=== PATIENT | female | born 1990 | race Caucasian/White ===

== ENCOUNTER 2020-02-02 11:26 | Observation (INO) | payer MEDICAID, SELFPAY ==
[2020-02-02] VITALS (8 sets, daily range): BP systolic 95–128; BP diastolic 50–87; PULSE 49–74; RESP 12–20; TEMP 36.6–36.9; O2SAT 99–100; BMI 38.2
--- NOTE | ~2020-02-02 | US_ITS ---
EXAMINATION: US right upper quadrant EXAM DATE: 02/02/2020 12:23 INDICATION: Cholelithiasis ruq pain, n/v. TECHNIQUE: Multiple grayscale and Doppler images of the abdomen right upper quadrant were obtained (b y a technologist who performed the scan) and subsequently reviewed. There is no prior study for michelle kidd. FINDINGS: The pancreatic head and body are normal in appearance. The pancreatic tail is not visualized. The l iver has normal echogenicity and contour. There are no focal liver lesions identified. There is no evidence of intrahepatic biliary duct dilation. Portal venous flow was seen in the hepatopedal, nor mal direction and has normal Doppler waveform. No right-sided hydronephrosis. Common bile duct measures 6 mm, which is normal. 3 sizable gallstones identified. The gallbladder is moderately distended. Gallbladder wall measuring 4 mm, mildly thickened. No pericholecystic fluid. T echnologist reports sonographic Elizabeth's sign was demonstrated. IMPRESSION: Cholelithiasis, mild gallbladder wall thickening and sonographic Elizabeth's sign demonstrat ed, findings suspicious for acute cholecystitis. Reviewed, dictated and finalized at location B. NTOLOGY AIDE IMPRESSION: Cholelithiasis, mild gallbladder wall thickening and sonographic Mu rphy's sign demonstrated, findings suspicious for acute cholecystitis.
--- NOTE | ~2020-02-02 | MR_ITS ---
EXAMINATION: MR MRCP wo/w con/w 3D wo ind DATE: 02/02/2020 17:32 INDICATION: Right upper quadrant abdominal pain. Cholelithiasis. TECHNIQUE: Magnetic resonance imaging (MRI) of the abdomen was performed without and with 20 mL Multi Evens intravenous contrast. Sequences included coronal T2-weighted FS FSE, coronal T2-weighted FSE, a xial T1-weighted LAVA, coronal FS FIESTA, axial dual-echo T1-weighted SPGR, coronal lava-FLEX, sagitt al T2-weighted FSE, axial T2-weighted FSE, and axial DWI. Thick-slab T2-weighted FSE images were obta ined for magnetic resonance cholangiopancreatography (MRCP). Maximum intensity projection 3-D reconst ructions of the volumetric data were created by the technologist. Postcontrast sequences included cor onal LAVA-flex and time course of axial T1-weighted LAVA. COMPARISON: Ultrasound 02/02/2020 FINDINGS: ABDOMEN MRI: There is a 4 mm cyst in the liver. The spleen, pancreas, adrenal glands, and kidneys are normal. The gallbladder is normal in size and contains gallstones. Gallbladder wall thickening is no fermin. There are no dilated loops of bowel. There are no pathologically enlarged lymph nodes. There is no free intraperitoneal fluid. ABDOMEN MRCP: The common duct is normal in size and measures 6 mm. No choledocholithiasis. IMPRESSION: 1. Cholelithiasis. Gallbladder wall thickening may be secondary to acute or chronic cholecystitis. Co nsider hepatobiliary scintigraphy. Reviewed, dictated and finalized at location A. URIC ACID PLANT OPERATOR IMPRESSION: 1. Cholelithiasis. Gallbladder wall thickening may be secondary to acute or chr onic cholecystitis. Consider hepatobiliary scintigraphy.
--- NOTE | 2020-02-02 11:38 | ED.ABDPAIN ---
HPI - Abdominal Pain General Chief Complaint: Abdominal Pain <DELL Garibay Last Filed: 02/02/20 14:44> Stated Complaint: RUQ pain <DELL Garibay Last Filed: 02/02/20 14:44> Time Seen by Provider: 02/02/20 11:34 <DELL Garibay Last Filed: 02/02/20 14:44> Source: patient <DELL Garibay Last Filed: 02/02/20 14:44> Mode of arrival: EMS <DELL Garibay Last Filed: 02/02/20 14:44> Limitations: no limitations <DELL Garibay Last Filed: 02/02/20 14:44> History of Present Illness HPI narrative: Patient presents to the [place] emergency department after leaving [facility], stepping outside and calling EMS to bring her to this facility. Patient was admitted for cholelithiasis and was scheduled to have surgery performed tomorrow to remove her gallbladder. Patient states that she did not like the wait times at [facility], treatment, or the surgeon so she left. She states that she wanted to have her gallbladder removed and we discharged the same day and they do not explain to her why that cannot be accomplished. Patient states that her symptoms began last night at approximately 11 PM and presented with pain to the right upper quadrant and nausea and vomiting. Patient states that she presented to [facility] emergency department where she was admitted and told her that he was having asthma gallbladder removed. Patient states she has not had anything to eat since that time. Patient reports that she attempted to swallow except water this morning but vomited it back up. Patient states that she received pain medication via EMS so at this time afterwards she is tender to the right upper quadrant but is not experiencing pain or nausea or vomiting.Patient states that she had an additional flare of the gallbladder in June and was discharged home without need for admission. Patient states that she smokes, drinks alcohol occasionally uses marijuana. Will hospitalize patient denies fever, urinary or bowel issues. She reports her only other surgery was ankle surgery. She reports that she is having an Implanon. <DELL Garibay Last Filed: 02/02/20 14:44> Related Data Home Medications: Home Medications Medication Instructions Recorded Confirmed No Home Medications 02/02/20 02/02/20 <Ayana Gonzales PA-C - Last Filed: 02/02/20 14:44> Allergies/Adverse Reactions: Allergies Allergy/AdvReac Type Severity Reaction Status Date / Time amoxicillin Allergy Unknown Verified 02/02/20 15:34 nickel Allergy Rash Verified 02/02/20 15:34 Penicillins Allergy Unknown Verified 02/02/20 15:34 <Ayana Gonzales PA-C - Last Filed: 02/02/20 14:44> Review of Systems Review of Systems: Narrative: CONSTITUTIONAL: Denies fever, chills, or sweats. EYES: Denies visual changes, redness, or discharge. ENT: Denies rhinorrhea, congestion, sore throat, or otalgia. CARDIOVASCULAR: Denies chest pain, palpitations, or edema. RESPIRATORY: Denies cough or dyspnea. GASTROINTESTINAL: Reports right upper quadrant abdominal pain, resolved- nausea and vomiting, denies diarrhea. GENITOURINARY: Denies dysuria or hematuria. SKIN: Denies rash or itching. MUSCULOSKELETAL: Denies back pain, joint pain, or myalgia. NEUROLOGIC: Denies headache, numbness, dizziness, or weakness. PSYCHIATRIC: Denies anxiety or depression. <Ayana Gonzales PA-C - Last Filed: 02/02/20 14:44> [facility] Past Medical History Medical History: Medical History (Updated 02/02/20 @ 17:58 by Aj Reyes MD) Anxiety Elevated liver enzymes Leukocytosis Nausea & vomiting RUQ pain <Ayana Gonzales PA-C - Last Filed: 02/02/20 14:44> Social History Social History: Social History Smoking packs per day: 1 Smoking cigarettes per day: 20.0 Smoking status: Current every day smoker Tobacco type: cigarettes Alcohol intake: current Drinks per week: 1 Sub
--- NOTE | 2020-02-02 11:58 | PC.NURSE ---
Pt. to ultrasound
[2020-02-02 12:11] LABS: Add Urine Microscopic? YES; Appearance Urine Cloudy (Clear); Bacteria Urine Trace /hpf; Bilirubin Urine Negative (Negative); Blood Urine Negative (Negative); Color Urine Amber (Yellow); Glucose Urine UA Negative (Negative); Ketones Urine Trace mg/dL (Negative); Leukocyte Esterase Ur 2+ LEU/UL (Negative); Mucus Urine Rare /lpf; Nitrate Urine Negative (Negative); Protein Urine 1+ mg/dL (Negative); Specific Grav Ur 1.025 (1.001-1.035); Squamous Epithelial Cell Urine Many /hpf (Few)
[2020-02-02 12:26] LABS: Amphetamine Screen Urine Negative (Negative); Barbiturate Screen Urine Negative (Negative); Benzodiazepines Screen Urine Negative (Negative); Cannabinoid Screen Urine Positive (Negative); Cocaine Screen Urine Negative (Negative); Methadone Screen Urine Negative (Negative); Opiate Screen Urine Positive (Negative); Phencyclidine Screen Urine Negative (Negative)
[2020-02-02 12:50] LABS: Basophils Percent Auto 0.3 % (0.2-1.2); Eosinophils Absolute Auto 0.2 K/mm3 (0-0.3); Eosinophils Percent Auto 1.2 % (0-4.4); Hematocrit 44.4 % (37.0-47.0); Hemoglobin 14.8 g/dL (12.0-15.0); Immature Granulocyte Absolute 0.04 K/mm3 (0.00-0.031); Immature Granulocyte Percent A 0.3 % (0-0.5); Lymphocytes Absolute Auto 1.19 K/mm3 (0.9-3.2); Lymphocytes Percent Auto 8.8 % (18.3-44.2); Mean Corpuscular HGB Conc 33.3 g/dl (32-36); Mean Corpuscular Hemoglobin 30.9 pg (26-34); Mean Corpuscular Volume 92.7 fl (80-100); Monocytes Absolute Auto 0.9 K/mm3 (0.1-0.6); Monocytes Percent Auto 6.4 % (2.6-8.5); Neutrophils Absolute Auto 11.2 K/mm3 (1.3-6.7); Platelet Count Result 277 k/mm3 (150-375); Red Blood Count 4.79 M/mm3 (4.2-5.4); Red Cell Distribution Width 13.3 % (11.5-14.5); White Blood Count 13.5 K/mm3 (4.5-10.0)
[2020-02-02 13:02] LABS: Lactic Acid Reflex 0.9 mmol/L (0.7-2.1)
[2020-02-02 13:03] LABS: Alanine Aminotransferase 460 U/L (4-35); Alkaline Phosphatase 103 U/L (38-126); Anion Gap 7 mmol/L (8-16); Aspartate Amino Transferase 536 U/L (14-36); Blood Urea Nitrogen 8 mg/dL (7-17); Calcium 8.6 mg/dL (8.4-10.2); Carbon Dioxide 26 mmol/L (22-30); Chloride 106 mmol/L (98-107); Estimated CRCL calculation 138 ml/min; Estimated Glomerular Filt Rate > 60; Glucose 90 mg/dL (65-105); Lipase 69 U/L (23-300); Potassium 3.6 mmol/L (3.4-5.0); Sodium 139 mmol/L (137-145)
--- NOTE | 2020-02-02 14:05 | PC.NURSE ---
Manual BP obtained. Pt. BP 95/50. EDP aware, EDP ordered 1L fluid bolus via verbal order readback
[2020-02-02] MEDS: SODIUM CHLORIDE 0.9% IV 1,000 ML 999 ML IV CONT (14:10)
--- NOTE | 2020-02-02 15:00 | PM.IMHP ---
H&P: HPI History of Present Illness Date/Time: 02/02/20 15:00 Chief Complaint: acute cholecystitis Narrative: Berna Renner is a 29 year old female presenting to ED from OSH c/o severe RUQ abd pain assoc c bloating, N/V. Pt reports mild sx in past but this particular episode has been going on for last few days constantly. Pt was admitted to OSH c acute cholecystitis but left AMA after some communication issues. Pt reports pain is somewhat improved but still c nausea, bloating. Review of Systems Constitutional: Constitutional: Reports anorexia, Denies chills, Reports fatigue, Denies fever(s), Denies headache(s), Denies increased appetite, Reports lethargy, Reports malaise, Reports poor appetite, Reports weakness, Denies weight gain and Denies weight loss Eyes: Eyes: Reports no additional eye complaints ENT: Reports system reviewed and no additional complaints, except as documented Cardiovascular: Cardiovascular: Reports no additional cardiovascular complaints Respiratory: Respiratory: Reports no additional respiratory complaints Gastrointestinal: Gastrointestinal: Reports abdominal pain, Reports belching, Reports bloating, Reports early satiety, Reports dyspepsia, Reports heartburn, Denies diarrhea, Denies loose stools and Reports nausea Genitourinary: Genitourinary: Reports no additional female genitourinary complaints Musculoskeletal: Musculoskeletal: Reports no additional musculoskeletal complaints Integumentary/Breasts: Skin/Breast: Reports system reviewed and no additional complaints, except as docu Neurologic: Reports system reviewed and no additional complaints, except as documented Psychiatric: Psychiatric: Reports no additional psychiatric complaints Endocrine: Endocrine: Reports no additional endocrine complaints Hematologic/Lymphatic: Hematologic/Lymphatic: Reports no additional hematologic/lymphatic complaints Allergic/Immunologic: Allergic/Immunologic: Reports no additional allergic/immunologic complaints [facility] Social History Social History Gender identity (if verbalized by the patient): Female Comments pt denies past med history, denies any FH of biliary dz, reports social marijuana use Meds Home Medications and Allergies Allergies Allergy/AdvReac Type Severity Reaction Status Date / Time amoxicillin Allergy Unknown Verified 02/02/20 11:33 Penicillins Allergy Unknown Verified 02/02/20 11:33 Vital Signs Vital Signs - 24 hr 02/02/20 11:28 02/02/20 13:05 02/02/20 14:04 Temperature 36.6 C Pulse Rate 55 L 60 49 L Respiratory Rate 17 12 12 Blood Pressure 124/77 128/78 95/50 L Pulse Oximetry 99 99 99 02/02/20 14:22 02/02/20 14:49 Temperature Pulse Rate 58 L 58 L Respiratory Rate 12 12 Blood Pressure 112/62 116/66 Pulse Oximetry 99 99 Exam Const: General: cooperative, alert, awake, Physically active and acute distress mild Nutritional Appearance: overweight Orientation/consciousness: patient oriented x3 Limitations: no limitations HENMT: Head: normal to inspection, normocephalic and atraumatic Ears: hearing grossly normal bilaterally General nose exam: Normal external nose present Mouth: Yes moist mucous membranes Eyes: General: appearance normal, both eyes and all related structures Pupils: Equal, round and reactive pupils present EOM: EOMs intact bilaterally Neck: Neck: normal visual inspection, full ROM and no lymphadenopathy Resp: Effort & Inspection: normal respiratory effort Auscultation: clear to auscultation bilaterally Cardio: Jugular venous distension: no JVD Rate: regular rate Rhythm: regular rhythm GI: Inspection: normal to inspection and non-distended GI Palp: Yes abdominal tenderness, Yes Soft to palpation and Yes Tenderness to palpation present (GI) Skin: General skin exam: normal color and no rashes or lesions noted Neuro: General: patient oriented x3 and CN's II-XI intact bilaterally Extrem: General: normal to inspection and full ROM
--- NOTE | 2020-02-02 15:18 | ADMGEN ---
This patient, Berna Renner, was admitted to 2 Medical Room 261-01. Patient/family oriented to hospital policies and general routines including ID bracelet, bed and alarms, visiting hours, pain management, procedures, bathroom and other care routines, personal items, smoking policy, room service/diet, and visiting hours. Information on how to activate the Rapid Response Team has been discussed. Patient/Family are encouraged to report perceived risks to care and to ask questions if they do not understand what they are told or what they should do.
[2020-02-02] MEDS: SODIUM CHLORIDE 0.9% IV 1,000 ML 125 ML IV CONT (16:22)
[2020-02-02] MEDS: LORazepam INJ (*CRX) 2 MG/ML VIAL 1 MG IV PUSH (16:23)
--- NOTE | 2020-02-02 17:53 | WPDGICN ---
Assessment and Plan Assessment and plan (1) Acute calculous cholecystitis: Code(s): K80.00 - Calculus of gallbladder with acute cholecystitis without obstruction Status: Acute Assessment and Plan: admitted to floor, on iv antibiotics and surgery on board- eventually will need cholecystectomy but will get MRCP to assess if biliary abnormalities (stones, sludge, strictures, etc) npo for now (2) Cholelithiasis: Qualifiers: Biliary obstruction: without biliary obstruction Cholecystitis acuity: acute Cholecystitis presence: with cholecystitis Cholelithiasis location: gallbladder Qualified Code(s): K80.00 - Calculus of gallbladder with acute cholecystitis without obstruction Code(s): K80.20 - Calculus of gallbladder without cholecystitis without obstruction Status: Acute (3) Elevated liver enzymes: Code(s): R74.8 - Abnormal levels of other serum enzymes Status: Acute Assessment and Plan: probably related to cholecystitis pending mrcp will get hepatitis panel, denies etoh abuse trend liver enzymes (4) Nausea & vomiting: Code(s): R11.2 - Nausea with vomiting, unspecified Status: Acute Assessment and Plan: improved, medical treatment (5) RUQ pain: Code(s): R10.11 - Right upper quadrant pain Status: Acute (6) Leukocytosis: Code(s): D72.829 - Elevated white blood cell count, unspecified Status: Acute Assessment and Plan: on antibiotics now (7) Anxiety: Code(s): F41.9 - Anxiety disorder, unspecified Status: Acute GI Consult Note Consult date/time: 02/02/20 17:53 Reason for consult: cholecystitis, elevated liver enzymes HPI: Berna Renner is a 29 year old female with history of depression, PTSD and anxiety who has been dealing with intermittent RUQ pain after eating. Recently she was in another hospital with severe pain RUQ abd with bloating, N/V but left AMA. She is here with similar symptoms and admitted to surgical service. ultrasound showed cholelithiasis, mild gallbladder wall thickening and sonographic Elizabeth's sign demonstrated, findings suspicious for acute cholecystitis. Also wbc 13, bili 2, transaminases 400-500. MRCP is pending. Never had egd, denies etoh abuse or liver problem. Review of Systems Constitutional: Constitutional: Denies chills Eyes: Eyes: Reports no additional eye complaints ENT: Reports system reviewed and no additional complaints, except as documented Cardiovascular: Cardiovascular: Denies chest pain Respiratory: Respiratory: Denies cough Gastrointestinal: Gastrointestinal: Reports abdominal pain and Reports nausea Genitourinary: Genitourinary: Denies urinary urgency Musculoskeletal: Musculoskeletal: Denies neck pain Integumentary/Breasts: Skin/Breast: Denies dry skin Neurologic: Denies headache(s) Psychiatric: Psychiatric: Reports anxiety [facility] Past Medical History Medical History (Updated 02/02/20 @ 17:58 by Aj Reyes MD) Anxiety Elevated liver enzymes Leukocytosis Nausea & vomiting RUQ pain Social History Social History Smoking packs per day: 1 Smoking cigarettes per day: 20.0 Smoking status: Current every day smoker Tobacco type: cigarettes Alcohol intake: current Drinks per week: 1 Substance use: former Substance use type: marijuana and methamphetamine Last use: 02/01/2020 marijuana; April 2019 Gender identity (if verbalized by the patient): Female Spiritual care concerns: No Meds Home Medications and Allergies Home Medications Medication Instructions Recorded Confirmed Type No Home Medications 02/02/20 02/02/20 History Allergies Allergy/AdvReac Type Severity Reaction Status Date / Time amoxicillin Allergy Unknown Verified 02/02/20 15:34 nickel Allergy Rash Verified 02/02/20 15:34 Penicillins Allergy Unknown Verified 02/02/20 15:34 Vital Signs Vital Signs - 24 hr
[2020-02-02] MEDS: metroNIDAZOLE 500 MG/ISO 100ML 500 MG/100 ML BAG 100 MG IVPB (18:36)
[2020-02-03] VITALS (15 sets, daily range): BP systolic 101–142; BP diastolic 51–87; PULSE 51–124; RESP 13–31; TEMP 36.1–36.9; O2SAT 95–100
[2020-02-03] MEDS: metroNIDAZOLE 500 MG/ISO 100ML 500 MG/100 ML BAG 100 MG IVPB ×2 (00:39→06:04)
[2020-02-03] MEDS: SODIUM CHLORIDE 0.9% IV 1,000 ML 125 ML IV CONT (04:02)
[2020-02-03] MEDS: HYDROmorphone HCL INJ (*CRX) 1 MG/ML SYR IV PUSH ×4 (04:14→12:48)
[2020-02-03 06:17] LABS: Hematocrit 40.8 % (37.0-47.0); Hemoglobin 13.8 g/dL (12.0-15.0); Mean Corpuscular HGB Conc 33.8 g/dl (32-36); Mean Corpuscular Hemoglobin 31.4 pg (26-34); Mean Corpuscular Volume 92.9 fl (80-100); Platelet Count Result 254 k/mm3 (150-375); Red Blood Count 4.39 M/mm3 (4.2-5.4); Red Cell Distribution Width 13.2 % (11.5-14.5); White Blood Count 8.6 K/mm3 (4.5-10.0)
[2020-02-03 06:31] LABS: Alanine Aminotransferase 388 U/L (4-35); Albumin Level 3.4 g/dL (3.5-5.1); Alkaline Phosphatase 107 U/L (38-126); Anion Gap 5 mmol/L (8-16); Aspartate Amino Transferase 227 U/L (14-36); Bilirubin,Total 2.7 mg/dL (0.2-1.3); Blood Urea Nitrogen 5 mg/dL (7-17); Calcium 8.2 mg/dL (8.4-10.2); Carbon Dioxide 24 mmol/L (22-30); Chloride 107 mmol/L (98-107); Estimated CRCL calculation 120 ml/min; Estimated Glomerular Filt Rate > 60; Glucose 83 mg/dL (65-105); Potassium 3.8 mmol/L (3.4-5.0); Sodium 136 mmol/L (137-145)
[2020-02-03 07:06] LABS: Hepatitis B Surface Antigen Negative (Negative)
[2020-02-03 07:12] LABS: HAV RESULT Negative (Negative); Hepatitis B Core IgM Result Negative (Negative)
--- NOTE | 2020-02-03 07:15 | PC.NURSE ---
Patient to OR.
[2020-02-03 07:23] LABS: Hepatitis C Virus Antibody Negative (Negative)
--- NOTE | 2020-02-03 07:34 | WPDANESEPPF ---
Anes - Initial Pre Proc Eval Procedure: Operation Date: 02/03/20 08:30 Proposed Procedures p Laparoscopic Cholecystectomy - Renita Peoples MD Date/Time: 02/03/20 07:34 Surgeon: Renita Peoples MD Pre Op Diagnosis: CHOLELITHIASIS ITH CHOLECYSTITIS Patient Data Age: 29 Gender: F Height: 1.63 m Weight: 101 kg Last Vital Signs Temp 36.1 C L 02/03/20 05:05 Pulse 51 L 02/03/20 05:05 Resp 18 02/03/20 05:05 BP 101/51 L 02/03/20 05:05 Pulse Ox 96 02/03/20 05:05 Allergies Allergy/AdvReac Type Severity Reaction Status Date / Time amoxicillin Allergy Severe Anaphylactic Verified 02/03/20 07:31 Shock Penicillins Allergy Severe Anaphylactic Verified 02/03/20 07:31 Shock nickel Allergy Mild Rash Verified 02/03/20 07:31 Home Medications Medication Instructions Recorded Confirmed Type No Home Medications 02/02/20 02/02/20 History Laboratory Tests 02/02/20 02/02/20 02/02/20 11:53 11:54 12:32 WBC 13.5 K/mm3 H K/mm3 (4.5-10.0) RBC 4.79 M/mm3 M/mm3 (4.2-5.4) Hgb 14.8 g/dL g/dL (12.0-15.0) Hct 44.4 % % (37.0-47.0) MCV 92.7 fl fl (80-100) MCH 30.9 pg pg (26-34) MCHC 33.3 g/dl g/dl (32-36) RDW 13.3 % % (11.5-14.5) Plt Count 277 k/mm3 k/mm3 (150-375) MPV 10.0 fl fl (7.4-10.4) Immature Gran % (Auto) 0.3 % % (0-0.5) Neut % (Auto) 83.0 % H % (45.5-73.1) Lymph % (Auto) 8.8 % L % (18.3-44.2) Mclean % (Auto) 6.4 % % (2.6-8.5) Eos % (Auto) 1.2 % % (0-4.4) Baso % (Auto) 0.3 % % (0.2-1.2) Lymph # (Auto) 1.19 K/mm3 K/mm3 (0.9-3.2) Mclean # (Auto) 0.9 K/mm3 H K/mm3 (0.1-0.6) Eos # (Auto) 0.2 K/mm3 K/mm3 (0-0.3) Baso # (Auto) 0.0 K/mm3 K/mm3 (0.0-0.1) Abs Immat Gran (auto) 0.04 K/mm3 H K/mm3 (0.00-0.031) Absolute Neuts (auto) 11.2 K/mm3 H K/mm3 (1.3-6.7) Absolute Nucleated RBC 0.0 K/mm3 K/mm3 (0.0-0.012) Nucleated RBC % 0.0 % % (0.0-0.2) Sodium Potassium Chloride Carbon Dioxide Anion Gap BUN Creatinine Estim Creat Clear Calc Estimated GFR Glucose Lactic Acid Calcium Total Bilirubin AST ALT Alkaline Phosphatase Total Protein Albumin Lipase Urine Color Wendy (Yellow) Urine Appearance Cloudy H (Clear) Urine pH 7.0 (5.0-9.0) Ur Specific [place] 1.025 (1.001-1.035) Urine Protein 1+ mg/dL H mg/dL (Negative) Urine Glucose (UA) Negative mg/dL mg/dL (Negative) Urine Ketones Trace mg/dL mg/dL (Negative) Ur Blood (Man) Negative (Negative) Urine Nitrate Negative (Negative) Urine Bilirubin Negative (Negative) Urine Urobilinogen 4.0 mg/dL H mg/dL (<2.0) Leukocyte Esterase Rfl 2+ CARRI/UL H CARRI/UL (Negative) Urine RBC 3-5 /hpf H /hpf (0-2) Urine WBC 4-6 /hpf H /hpf Ur Squamous Epith Cells Many /hpf H /hpf (Few) Urine Bacteria Trace /hpf /hpf Urine Mucus Rare /lpf /lpf Urine Opiates Screen Positive A (Negative) Urine Methadone Screen Negative (Negative) Ur Barbiturates Screen Negative (Negative) Ur Phencyclidine Scrn Negative (Negative) Ur Amphetamine Screen Negative (Negative) U Benzodiazepines Scrn Negative (Negative) Urine Cocaine Screen Negative (Negative) U Cannabinoids Screen Positive A (Negative) Hepatitis A IgM Ab Hep Bs Antigen Hep B Core IgM Ab Hepatitis
[2020-02-03] MEDS: LACTATED RINGERS 1,000 ML 30 ML IV CONT ×2 (07:40→09:42)
[2020-02-03] MEDS: FAMOTIDINE 20 MG/2 ML VIAL IV PUSH (07:51)
[2020-02-03] MEDS: SCOPOLAMINE 1.5 MG PATCH TRANSDERM (07:51)
--- NOTE | 2020-02-03 08:17 | WPDHPUPDATE1 ---
History and Physical Update Update Date/Time: 02/03/20 08:17 History and Physical has been reviewed, including an updated exam of the patient. There are NO changes in the patient's condition. Risks, benefits, and alternatives have been discussed and questions answered. Patient agrees to proceed with procedure.
[2020-02-03] MEDS: BUPIVACAINE/EPINEPHRINE 0.25% 10 ML VIAL 30 ML INFILTRATE (08:52)
[2020-02-03] MEDS: KETAMINE HCL (*CRX) 500 MG/10 ML VIAL 50 MG IV PUSH (09:40)
[2020-02-03] MEDS: fentaNYL CITRATE INJ (*CRX) 100 MCG/2 ML VIAL 25 MCG IV PUSH ×8 (10:00→10:50)
[2020-02-03] MEDS: MIDAZOLAM HCL (*CRX) 2 MG/2 ML VIAL IV PUSH (10:23)
--- NOTE | 2020-02-03 10:23 | SUR.PHASEI ---
RASHI SHANKAR GAVE 50 KETAMINE AT 0940, I CHARTED. KEITH CARTER GAVE ORDER FOR 1 MG DILAUDID AT 1005, I GAVE. DR GAGNON GAVE ORDER FOR 2 VERSED AT 1015, I GAVE.
--- NOTE | 2020-02-03 10:42 | PM.PROC ---
Procedure Note - Detailed Date of procedure: 02/03/20 Pre-op diagnosis: CHOLELITHIASIS ITH CHOLECYSTITIS acute cholecystitis, cholelithiasis Post-op diagnosis: same Procedure performed: laparoscopic cholecystectomy Description of procedure: The patient was taken to the operating room placed in the supine position. After adequate induction of general anesthesia, the patient was prepped and draped in normal sterile fashion. A time-out was then performed to verify the patient's identity as well as the procedure being performed. I then made a 5 mm incision in the infraumbilical region. Through this, a Veress needle was placed into the peritoneal cavity and CO2 gas was then insufflated. After adequate pneumoperitoneum was achieved, the Veress needle was removed and a 5 mm trocar was placed through this incision. I then placed the laparoscope through this trocar site and under direct visualization placed a further 12 mm subxiphoid port as well as 2 additional 5 mm ports in the right upper abdomen. The gallbladder was then identified and was noted to be inflamed. I was able to place a grasper at the dome of the gallbladder and this was retracted anterior and cephalad up over the liver. A 2nd retractor was then placed at the infundibulum and retracted laterally, this allowed visualization of the triangle of Calot. I then was able to visualize the cystic duct in its entirety from its proximal insertion into the gallbladder, to its distal junction with the common hepatic/common bile duct junction. At this point, I carefully skeletonized the proximal cystic duct with the [place] dissector. I then clipped and transected the proximal cystic duct. Next I visualized the cystic artery. Again the artery was skeletonized, clipped, and transected. I then used the Bovie cautery to take down the peritoneal attachments of the gallbladder off the liver bed. Once the gallbladder specimen was completely detached, an endo-pouch was placed through the 12 mm port site. I then placed the gallbladder specimen into the Endo pouch and removed the endo-pouch from the 12 mm port site. The specimen will now be sent to pathology for further review. I then copiously irrigated the right upper quadrant. Hemostasis was noted in the liver bed, the clips were noted to be in good position on both the cystic duct stump and the cystic artery stump. No other pathology was noted in the right upper quadrant. I then moved the laparoscope to the subxiphoid port. No iatrogenic injury or other pathology was noted in the lower abdomen. At this point, the abdomen was desufflated and all ports removed. The fascia of the 12 mm subxiphoid port was closed with a 0 Vicryl figure of 8 suture. All port sites were then closed with 4.O Monocryl subcuticular sutures. Dermabond was placed on each incision. The patient tolerated the procedure well, was extubated in the operating room postoperative and will be transferred to the recovery room in stable condition. Implants: none Anesthesia: GETA Surgeon: Renita Peoples MD Estimated blood loss (mL): 5 Drains: No Packing: No Pathology: yes Complications: No immediate complications Condition: stable Disposition: PACU Findings: acute cholecystitis, cholelithiasis
--- NOTE | 2020-02-03 11:11 | PC.NURSE ---
Patient returned from OR.
[2020-02-03] MEDS: NICOTINE (*PBKC) 21 MG PATCH 1 PATCH TRANSDERM (11:14)
--- NOTE | 2020-02-03 12:30 | PC.NURSE ---
Patient received from OR thrashing around in the bed, hysterically crying and unable to be consoled. Patient stating she was having RUQ sharp pains. Educated patient in regards to gas pains following surgery, the need for ambulation, etc. Patient at that time was not receptive to the information and continued to thrash around in the bed. IV Ofirmev was administered. At this time, patient still unable to be consoled, stating the pain is 10/10 epigastric region. Called and spoke to Ananya Darby. Received orders from her that I was able to administer patients dilaudid. Ananya aware of medications patient received in PACU including Fentanyl, Versed, Ketamine, and Dilaudid.
[2020-02-03] MEDS: HYDROcodone/acetaminophen (*CRX) 5-325 MG TABLET 1 TAB PO (15:19)
--- NOTE | 2020-02-03 16:07 | WPDGIPROGNO ---
Progress Note: A&P Assessment and Plan (1) RUQ pain: Code(s): R10.11 - Right upper quadrant pain Status: Acute (2) Acute calculous cholecystitis: Code(s): K80.00 - Calculus of gallbladder with acute cholecystitis without obstruction Status: Acute Assessment and Plan: lap kim today and recovering no need of ercp (3) Leukocytosis: Code(s): D72.829 - Elevated white blood cell count, unspecified Status: Acute Assessment and Plan: resolved, on antibiotics Subjective Date/time seen: 02/03/20 16:07 Interval history: MRCP no choledocholithiasis and today underwent lap kim, recovering from surgery. Review of Systems Review of Systems: All systems reviewed & are unremarkable except as noted in HPI and below Exam Const: General: comfortable and no acute distress HENMT: General nose exam: Normal nares present Eyes: General: appearance normal, both eyes and all related structures Neck: Neck: no JVD Resp: Auscultation: clear to auscultation bilaterally Cardio: Rate: regular rate Rhythm: regular rhythm GI: GI Palp: Yes Soft to palpation and Yes Tenderness to palpation present (GI) (minimally tender from recent lap kim, no rebound) Auscultation: normal bowel sounds Skin: General skin exam: normal color Neuro: General: gait normal Speech: normal speech Extrem: General: normal to inspection Psych: Mental Status: mental status grossly normal Objective Data Vital Signs Vital Signs: Vital Signs - 24 hr 02/02/20 22:00 02/03/20 04:13 02/03/20 05:05 Temperature 98.1 F 97 F L Pulse Rate 74 51 L Respiratory Rate 20 18 Blood Pressure 125/52 L 110/80 101/51 L Pulse Oximetry 99 96 02/03/20 07:34 02/03/20 09:33 02/03/20 09:45 Temperature 97.5 F L 97.3 F L Pulse Rate 124 H 63 65 Respiratory Rate 18 18 31 H Blood Pressure 122/73 106/87 111/82 Pulse Oximetry 97 100 100 02/03/20 10:00 02/03/20 10:15 02/03/20 10:30 Temperature Pulse Rate 66 57 L 60 Respiratory Rate 14 20 13 Blood Pressure 122/86 122/86 134/79 Pulse Oximetry 100 100 97 02/03/20 10:45 02/03/20 11:00 02/03/20 11:16 Temperature 98.4 F Pulse Rate 64 71 78 Respiratory Rate 17 19 18 Blood Pressure 142/82 H 126/73 141/81 H Pulse Oximetry 97 98 97 02/03/20 11:31 02/03/20 12:01 02/03/20 13:01 Temperature 98.4 F 98.4 F 98.4 F Pulse Rate 51 L 52 L 75 Respiratory Rate 16 16 16 Blood Pressure 135/69 138/80 122/56 L Pulse Oximetry 95 96 97 02/03/20 14:22 Temperature Pulse Rate Respiratory Rate Blood Pressure Pulse Oximetry 97 Intake/Output Intake/Output: Intake & Output 01/31/20 02/01/20 02/02/20 02/03/20 23:59 23:59 23:59 23:59 Intake Total 1550 2480 Balance 1550 2480 Meds/Results Medications: Active Medications Generic Name Dose Route Start Last Admin Trade Name Freq PRN Reason Stop Dose Admin Hydrocodone Bitart/Acetaminophen 1 tab 02/03/20 11:06 02/03/20 15:19 Hydrocodone/Acetaminophen (*Crx) 5-325 Mg Tablet PO 1 tab Q6H PRN Administration Pain Rated 4-6 Hydromorphone HCl 1 mg 02/02/20 18:22 02/03/20 12:48 Hydromorphone Hcl Inj (*Crx) 1 Mg/Ml Syr IV PUSH 1 mg Q2H PRN Administration Pain Rated 7-10 Sodium Chloride 1,000 mls @ 125 mls/hr 02/02/20 13:45 02/03/20 11:59 Normal Saline Iv IV CONT 125 mls/hr .Q8H JESUS Infusion Acetaminophen 1,000 mg in 100 mls @ 400 mls/hr 02/02/20 18:22 02/03/20 11:59 Ofirmev 1,000 Mg Ivpb IVPB 02/03/20 18:23 Infused Q6H PRN Infusion Pain Rated 4-6 Nicotine 1 patch 02/02/20 18:45 02/03/20 11:14 Nicotine (*Pbkc) 21 Mg Patch TRANSDERM 1 patch QAM JESUS Administration Ondansetron HCl 4 mg 02/02/20 13:41 Ondansetron Inj 4 Mg/2 Ml Vial IV PUSH Q4H PRN Nausea Simethicone 80 mg 02/03/20 17:00 Simethicone 80 Mg Tab.Chew PO QID [facility] Radiology Results: ITS Impressions Upper Quadrant Ultrasound 02/02/20 12:24 IM
[2020-02-03] MEDS: SIMETHICONE 80 MG TAB.CHEW PO (16:42)
--- NOTE | 2020-02-10 08:29 | PM.DS ---
DS: Admitting Diagnosis Admitting Diagnosis Admitting Diagnosis: acute cholecystitis DS: Discharge Diagnosis Discharge Diagnosis (1) Acute calculous cholecystitis: Code(s): K80.00 - Calculus of gallbladder with acute cholecystitis without obstruction Status: Acute Assessment and Plan: s/p lap kim, routine postop care (2) Elevated liver enzymes: Code(s): R74.8 - Abnormal levels of other serum enzymes Status: Acute Assessment and Plan: trending down, likely from previous choledocholithiasis (3) Anxiety: Code(s): F41.9 - Anxiety disorder, unspecified Status: Acute Assessment and Plan: will need to f/u c PCP, given IV Ativan while in hospital DS: Summary Hospital Course Reason for hospitalization: acute cholecystitis Hospital Course: Patient presented to the emergency department from outside hospital complaining of severe right upper quadrant abdominal pain associated with severe intractable nausea and vomiting, bloating. The patient had actually already been diagnosed with acute cholecystitis and planned operative intervention at outside hospital was canceled once the patient left [facility]. The patient reports that she gets very anxious at hospitals and that is why she left the previous hospital. The patient was admitted to our service from the emergency department with plans for interval cholecystectomy. The patient was noted to have elevated LFTs however subsequent MRCP was negative for choledocholithiasis. Given this, the patient cholecystectomy the following morning. Please see full operative report for details of that procedure. The patient did well postoperatively and was discharged home. She will follow up with me in 2 weeks. Time spent discussing smoking cessation with patient: 3 to 10 minutes Status at Discharge Functional status at discharge: independent ambulation Overall status at discharge: patient is progressing back to baseline Time Spent with Patient Time attestation: Total time spent providing and/or coordinating discharge services: Time spent: Less than 30 minutes Exam Const: General: cooperative, comfortable, no acute distress and anxious Resp: Effort & Inspection: normal respiratory effort Cardio: Rate: regular rate Rhythm: regular rhythm GI: Inspection: normal to inspection, distended and incision GI Palp: Yes abdominal tenderness DS: Data Data Completed and Pending Completed studies during hospitalization: Pending at discharge 02/03/20 09:03 Surgical [PTH] Routine Discharge Plan Discharge Attending physician on discharge: Renita Peoples Consulting providers: Maryuri Singh ; Aj Reyes ; Ayana Gonzales ; Monico Joya V. ; Santosh Amador Discharging Clinician: Renita Peoples Anticipated Discharge Date/Time: 02/03/20 16:16 Patient Disposition: Home, Self-Care Activity: other - see discharge instructions Diet: as tolerated and regular Wound Care Instructions: follow printed instructions Discharge Instructions: Remove the Scopolamine patch that was placed behind your ear in 72 hours or less. Wash your hands after touching. DISCHARGE INSTRUCTION SHEET FOR HERNIA, GALLBLADDER AND APPENDIX SURGERIES DR. PEOPLES PATIENT TO TAKE HOME 1. May shower in 24 hours, no soaking in bath x 2weeks. 2. Call office for: Wound increasingly painful or bleeding Vomiting Fever of greater than 101 degrees 3. If no bowel movement for three days, take 1 oz. (30 ml) Milk of Magnesia or MiraLax 17g 1 to 2 times daily. 4. No heavy lifting > 10-15 pounds x2 weeks for laparoscopic cholecystectomy. 5. No driving for 3 days or while taking narcotic pain medications. 6. Ice to surgical site for 48 hours (30 min on, then 30 min off). 7. Up walking 10-30 minutes three times per day. 8. Resume previous home medications. 9. Follow-up 10-14 days in
== END 2020-02-03 17:26 | disposition home or self-care (01) ==
LOC: ANHED 13:32 → ANH2MED 14:18
PROVIDERS: Internal Medicine Gastroenterology; Physician Assistant; Admitting Provider Surgery; Emergency Provider Emergency Medicine; Visit Provider Surgery
PROC: 0FT44ZZ Resection of Gallbladder, Percutaneous Endoscopic Approach (ICD-10-PCS; CPT 47562; principal; 2020-02-03 08:30)
DX: K80.00 Calculus of gallbladder with acute cholecystitis without obstruction (principal); R74.8 Abnormal levels of other serum enzymes; F17.210 Nicotine dependence, cigarettes, uncomplicated
CPT/HCPCS: 47562; 36415; 74183; 76376; 76705; 80053; 80074; 80307; 81001; 81025; 83605; 83690; 85025; 85027; 87040; 88304; 96361; 96365; 96366; 96367; 96375; 96376; 99285; A9270; A9577; G0378; G0379; J0131; J0330; J1100; J1170; J1956; J2060; J2250; J2405; J2704; J3010; J7030; J7120

== ENCOUNTER 2023-04-28 19:03 | Emergency (ER) | payer SELFPAY ==
--- NOTE | ~2023-04-28 | US_ITS ---
EXAMINATION: US pelvic complete DATE: 04/28/2023 21:29 INDICATION: RLQ pain, ovarian cyst on CT, r/o torsion using moderate obstructive structures reflect indicating the TECHNIQUE: Multiple transabdominal sonographic images of the pelvis were obtained. COMPARISON: CT abdomen pelvis, same date. FINDINGS: Uterus: 9.6 x 3.4 x 3.6 cm. Endometrial complex measures 9 mm. Right Ovary: 4.5 x 3.5 x 3.7 cm. Vascular flow is present. Simple ovarian cyst. Left Ovary: 2.7 x 1.9 x 2.0 cm. Vascular flow is present. There is no free fluid in the pelvis. IMPRESSION: Normal transabdominal pelvic sonogram findings. Reviewed, dictated and finalized at location K.
--- NOTE | ~2023-04-28 | CT_ITS ---
EXAMINATION: CT abdomen pelvis w con DATE: 04/28/2023 20:42 INDICATION: RLQ abd pain, n/v TECHNIQUE: Computed tomography (CT) of the abdomen and pelvis was performed with 100 mL Omnipaque-350 intravenous contrast. Automated exposure control and iterative reconstruction technique were employe d. The dose-length product was 1277.48 mGy-cm. COMPARISON: None. FINDINGS: Lower thorax: Dependent atelectasis Liver: Normal. Biliary/Gallbladder: Gallbladder is absent. Mild intra and extrahepatic duct dilation. Pancreas: No mass or duct dilation. Spleen: Normal. Adrenals:No mass. Kidneys: No suspicious mass, obstructing stone, or hydronephrosis. GI tract: Mild distal esophageal and gastric wall edema No small or large bowel dilation. Normal appe ndix. Diverticulosis without diverticulitis. Mesentery/Peritoneum: No ascites, mass, or free air. Retroperitoneum: No mass. Pelvis: Pelvic organs are within normal limits. 3.5 cm simple right ovarian cyst which requires no ad ditional evaluation. Soft Tissues: Soft tissues and body wall unremarkable. Bones: No acute osseous finding. IMPRESSION: Mild esophagitis/gastritis. Mild intrahepatic and extrahepatic duct dilation, may be secondary to cholecystectomy. Correlate with symptoms of right upper quadrant pain and biliary labs. Reviewed, dictated and finalized at location K. IMPRESSION: Mild esophagitis/gastritis. Mild intrahepatic and extrahepatic duct dilation, may be secondary to cholecyst ectomy. Correlate with symptoms of right upper quadrant pain and biliary labs.
[2023-04-28 19:19] VITALS: BP 122/71; PULSE 68; RESP 20; TEMP 36.1; O2SAT 95
--- NOTE | 2023-04-28 19:26 | ED.ABDPAIN ---
HPI - Abdominal Pain General Chief Complaint: Abdominal Pain Stated Complaint: abdominal pain Time Seen by Provider: 04/28/23 19:23 Source: patient Mode of arrival: ambulatory Limitations: no limitations History of Present Illness HPI narrative: Patient is a 32-year-old female who presents to the ED with report of right lower abdominal pain. Patient reports pain began approx 2 hours ago. Has been constant since then. Present in her right lower abdomen. [place] similar to when she had gallbladder issues. Has since had a cholecystectomy. Reports pain worse with movement and on the car ride here. Reports nausea and vomiting. Denies fevers, dysuria, hematuria, diarrhea, constipation. Patient tried taking Tylenol and ibuprofen several hours ago at home without improvement. Related Data Home Medications Medication Instructions Recorded Confirmed No Home Medications 02/02/20 02/02/20 Allergies Allergy/AdvReac Type Severity Reaction Status Date / Time amoxicillin Allergy Severe Anaphylactic Verified 04/28/23 19:03 Shock Penicillins Allergy Severe Anaphylactic Verified 04/28/23 19:03 Shock nickel Allergy Mild Rash Verified 04/28/23 19:03 Review of Systems Review of Systems: CONSTITUTIONAL: Denies fever, chills, or sweats. CARDIOVASCULAR: Denies chest pain. RESPIRATORY: Denies dyspnea. GASTROINTESTINAL: See HPI GENITOURINARY: Denies dysuria or hematuria. All systems reviewed & are unremarkable except as noted in HPI and below PMFSH Past Medical History Medical History Anxiety Asthma Depression Elevated liver enzymes GERD (gastroesophageal reflux disease) Hypothyroidism Leukocytosis Nausea & vomiting RUQ pain Surgical History Surgical History History of cholecystectomy Social History Social History Smoking packs per day: 1 Smoking cigarettes per day: 20.0 Smoking status: Current every day smoker Tobacco type: cigarettes Alcohol intake: current Drinks per week: 1 Substance use: former Substance use type: marijuana and methamphetamine Last use: 02/01/2020 marijuana; April 2019 Gender identity (if verbalized by the patient): Female Spiritual care concerns: No Exam Narrative: GENERAL: Mildly uncomfortable appearing, obese with BMI of 35.2, non-toxic, in no acute distress. HEAD: Normocephalic, atraumatic. RESPIRATORY: Airway patent, respirations nonlabored. Clear to auscultation bilaterally, no rales, rhonchi, wheezing. CARDIOVASCULAR: Regular rate and rhythm ABDOMINAL: Soft, focal tenderness to palpation in RLQ, R mid abdomen, nondistended. Normoactive BS. MUSCULOSKELETAL: Moves all extremities. No gross deformities. SKIN: Warm, dry, normal color. NEURO: A&O X3. Speech clear. PSYCHIATRIC: Appropriate mood and affect. Normal interaction. Course Vital Signs Vital signs: Vital Signs Temperature 97.0 F L 04/28/23 19:19 Pulse Rate 68 04/28/23 19:19 Respiratory Rate 20 04/28/23 19:19 Blood Pressure 122/71 04/28/23 19:19 Pulse Oximetry 95 04/28/23 19:19 Oxygen Delivery Room Air 04/28/23 19:19 Temperature 97.0 F L 04/28/23 19:19 Pulse Rate 54 L 04/28/23 21:53 Respiratory Rate 16 04/28/23 21:53 Blood Pressure 127/69 04/28/23 21:53 Pulse Oximetry 100 04/28/23 21:53 Oxygen Delivery Room Air 04/28/23 19:19 MDM - Abdominal Pain MDM Narrative Medical decision making narrative: Patient presented to ED with several onset of right lower quadrant abdominal pain, associated with nausea/vomiting. Vitals are stable upon arrival. Patient afebrile. Focal right lower quadrant tenderness on exam. Laboratory studies show leukocytosis of 15.5. May be in part reactive to vomiting that occurred just prior to arrival. CMP w/ K 3.3, will replace. Minimal t
[2023-04-28] MEDS: SODIUM CHLORIDE 0.9% IV 1,000 ML 999 ML IV CONT (19:40)
[2023-04-28] MEDS: MORPHINE SULFATE (*CRX) 4 MG/ML INJ IV PUSH (19:41)
[2023-04-28] MEDS: ONDANSETRON INJ 4 MG/2 ML VIAL IV PUSH (19:41)
[2023-04-28 19:43] LABS: Basophils Absolute Auto 0.1 K/mm3 (0.0-0.1); Basophils Percent Auto 0.5 % (0.2-1.2); Eosinophils Absolute Auto 0.6 K/mm3 (0-0.3); Eosinophils Percent Auto 3.5 % (0-4.4); Hematocrit 44.3 % (37.0-47.0); Hemoglobin 14.9 g/dL (12.0-15.0); Immature Granulocyte Absolute 0.05 K/mm3 (0.00-0.031); Immature Granulocyte Percent A 0.3 % (0-0.5); Lymphocytes Absolute Auto 3.79 K/mm3 (0.9-3.2); Lymphocytes Percent Auto 24.4 % (18.3-44.2); Mean Corpuscular HGB Conc 33.6 g/dl (32-36); Mean Corpuscular Hemoglobin 31.2 pg (26-34); Mean Corpuscular Volume 92.7 fl (80-100); Mean Platelet Volume 9.9 fl (7.4-10.4); Monocytes Absolute Auto 0.7 K/mm3 (0.1-0.6); Monocytes Percent Auto 4.5 % (2.6-8.5); Neutrophils Absolute Auto 10.4 K/mm3 (1.3-6.7); Neutrophils Percent Auto 66.8 % (45.5-73.1); Platelet Count Result 319 k/mm3 (150-375); Red Blood Count 4.78 M/mm3 (4.2-5.4); Red Cell Distribution Width 13.3 % (11.5-14.5); White Blood Count 15.5 K/mm3 (4.5-10.0)
[2023-04-28 19:46] LABS: Appearance Urine Cloudy (Clear); Bacteria Urine 1+ /hpf; Bilirubin Urine Negative (Negative); Blood Urine Negative (Negative); Color Urine Yellow (Yellow); Glucose Urine UA Negative (Negative); Ketones Urine Trace mg/dL (Negative); Leukocyte Esterase Ur Trace LEU/UL (Negative); Nitrate Urine Negative (Negative); Non Pathogenic Casts 0-2; Protein Urine Trace mg/dL (Negative); RBC Urine 0-2 /hpf (0-2); Specific Grav Ur 1.025 (1.001-1.035); Squamous Epithelial Cell Urine Few /hpf (Few); pH Urine 6.5 (5.0-9.0)
[2023-04-28 19:54] LABS: Alanine Aminotransferase 47 U/L (6-35); Albumin Level 4.1 g/dL (3.5-5.1); Alkaline Phosphatase 88 U/L (38-126); Anion Gap 7 mmol/L (8-16); Aspartate Amino Transferase 98 U/L (14-36); Bilirubin,Total 0.4 mg/dL (0.2-1.3); Blood Urea Nitrogen 9 mg/dL (7-17); Calcium 8.9 mg/dL (8.4-10.2); Carbon Dioxide 24 mmol/L (22-30); Chloride 107 mmol/L (98-107); Estimated CRCL calculation 108 ml/min; Estimated Glomerular Filt Rate > 60; Glucose 118 mg/dL (65-110); Lipase 110 U/L (23-300); Potassium 3.3 mmol/L (3.4-5.0); Sodium 138 mmol/L (137-145)
[2023-04-28 20:01] LABS: Add Urine Microscopic? YES
[2023-04-28 20:19] VITALS: BP 110/69; PULSE 65; RESP 16; O2SAT 97
[2023-04-28] MEDS: POTASSIUM CHLORIDE 20 MEQ ER TABLET 40 MEQ PO (21:33)
[2023-04-28 21:53] VITALS: BP 127/69; PULSE 54; RESP 16; O2SAT 100
[2023-04-28] MEDS: KETOROLAC 30 MG/ML VIAL (*BKC) IV PUSH (22:05)
== END 2023-04-28 22:38 | disposition home or self-care (01) ==
PROVIDERS: Emergency Provider Physician Assistant
DX: R10.31 Right lower quadrant pain (principal); N83.201 Unspecified ovarian cyst, right side; J45.909 Unspecified asthma, uncomplicated; E03.9 Hypothyroidism, unspecified; K21.9 Gastro-esophageal reflux disease without esophagitis; Z90.49 Acquired absence of other specified parts of digestive tract; F17.210 Nicotine dependence, cigarettes, uncomplicated; K20.90 Esophagitis, unspecified without bleeding; K29.70 Gastritis, unspecified, without bleeding
CPT/HCPCS: 36415; 74177; 76856; 80053; 81025; 83690; 85025; 87086; 87088; 96361; 96374; 96375; 99284; A9270; J1885; J2270; J2405; J7030; Q9967

== ENCOUNTER 2023-05-29 09:11 | Outpatient (CLI) | payer OTHER, SELFPAY ==
[2023-05-29 12:41] LABS: Free T4 Free Thyroxine 1.07 ng/mL (0.78-2.19)
[2023-05-29 13:22] LABS: Hemoglobin A1C 5.2 % (<5.7)
[2023-05-31 04:59] LABS: Triiodothyronine T3 Free 3.4 pg/mL (2.3-4.2)
[2023-06-03 11:09] LABS: Vitamin D 1,25 (OH)2 Total 48 pg/mL (18-72); Vitamin D2 1,25 (OH)2 <8 pg/mL; Vitamin D3 1,25 (OH)2 48 pg/mL
== END 2023-05-29 09:12 | disposition home or self-care (01) ==
LOC: ANHGOSHLAB 09:12
PROVIDERS: PCP Family Medicine; Visit Provider Nurse Practitioner Family
DX: Z00.00 Encounter for general adult medical examination without abnormal findings (principal); E11.9 Type 2 diabetes mellitus without complications; E55.9 Vitamin D deficiency, unspecified; K59.00 Constipation, unspecified; R79.89 Other specified abnormal findings of blood chemistry
CPT/HCPCS: 36415; 82652; 83036; 84439; 84443; 84481

== ENCOUNTER 2023-12-10 08:32 | Outpatient (CLI) | payer OTHER, SELFPAY ==
[2023-12-10 20:06] LABS: Basophils Absolute Auto 0.1 K/mm3 (0.0-0.1); Basophils Percent Auto 1.2 % (0.2-1.2); Eosinophils Absolute Auto 0.6 K/mm3 (0-0.3); Eosinophils Percent Auto 5.7 % (0-4.4); Hematocrit 46.2 % (37.0-47.0); Immature Granulocyte Absolute 0.03 K/mm3 (0.00-0.031); Immature Granulocyte Percent A 0.3 % (0-0.5); Lymphocytes Absolute Auto 3.48 K/mm3 (0.9-3.2); Lymphocytes Percent Auto 32.3 % (18.3-44.2); Mean Corpuscular HGB Conc 32.5 g/dl (32-36); Mean Corpuscular Hemoglobin 31.2 pg (26-34); Monocytes Absolute Auto 0.7 K/mm3 (0.1-0.6); Monocytes Percent Auto 6.8 % (2.6-8.5); Neutrophils Absolute Auto 5.8 K/mm3 (1.3-6.7); Neutrophils Percent Auto 53.7 % (45.5-73.1); Platelet Count Result 329 k/mm3 (150-375); Red Blood Count 4.81 M/mm3 (4.2-5.4); Red Cell Distribution Width 13.7 % (11.5-14.5); White Blood Count 10.8 K/mm3 (4.5-10.0)
[2023-12-10 20:35] LABS: Alanine Aminotransferase 32 U/L (6-35); Albumin Level 4.1 g/dL (3.5-5.1); Alkaline Phosphatase 56 U/L (38-126); Anion Gap 7 mmol/L (4-12); Aspartate Amino Transferase 28 U/L (14-36); Bilirubin,Total 0.3 mg/dL (0.2-1.3); Blood Urea Nitrogen 9 mg/dL (7-17); Calcium 9.1 mg/dL (8.4-10.2); Carbon Dioxide 26 mmol/L (22-30); Chloride 108 mmol/L (98-107); Cholesterol 169 mg/dL (0-200); Estimated Glomerular Filt Rate > 60; Glucose 86 mg/dL (65-110); HDL Direct 39 mg/dL; Potassium 4.1 mmol/L (3.4-5.0); Sodium 141 mmol/L (137-145); Triglycerides 89 mg/dL (<150)
[2023-12-10 20:47] LABS: LDL Cholesterol Direct 105 mg/dL
[2023-12-10 22:48] LABS: Free T4 Free Thyroxine 1.31 ng/mL (0.78-2.19)
== END 2023-12-10 08:33 | disposition home or self-care (01) ==
LOC: ANHGOSHLAB 08:33
PROVIDERS: PCP Family Medicine; Visit Provider Nurse Practitioner Family
DX: E03.9 Hypothyroidism, unspecified (principal); R74.8 Abnormal levels of other serum enzymes; Z79.899 Other long term (current) drug therapy; Z13.220 Encounter for screening for lipoid disorders
CPT/HCPCS: 36415; 80053; 80061; 84439; 84443; 85025